=== PATIENT | male | born 1960 | race Caucasian/White ===

== ENCOUNTER → 2021-06-19 09:39 | Outpatient (CLI) | payer OTHER, SELFPAY ==
--- NOTE | ~2021-06-19 | US_ITS ---
EXAMINATION: US soft tissue head and neck EXAM DATE: 06/19/2021 10:04 INDICATION: R22.1 - Localized swelling, mass and lump, neck. TECHNIQUE: Multiple grayscale and Doppler images of the right neck palpable abnormality were obtained (by a technologist who performed the scan) and subsequently reviewed. There is no prior study for c omparison. FINDINGS: Scanning in right neck palpable abnormality demonstrates a focal echogenic region most likely patholo gically enlarged lymph node measuring 2.0 x 0.9 x 1.6 cm. Differential diagnosis includes reactive et iology from granulomatous process, lymphoma or metastatic disease. Consider neck CT with contrast. 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 Reviewed, dictated and finalized at location A. IMPRESSION: Right neck mass most likely pathologically enlarged lymph node; cli nical correlation, consider neck CT with contrast.
== END ==
PROVIDERS: PCP Physician Assistant; Visit Provider Otolaryngology
DX: R22.1 Localized swelling, mass and lump, neck (principal)
CPT/HCPCS: 76536

== ENCOUNTER 2021-06-28 10:25 | Outpatient (CLI) | payer OTHER, SELFPAY ==
--- NOTE | ~2021-06-28 | US_ITS ---
EXAMINATION: US FNA w image guidance DATE: 06/28/2021 11:23 INDICATION: Right neck mass. TECHNIQUE: The procedure and its benefits and risks were discussed with the patient. Risks specifically discusse d included bleeding. The patient verbalized understanding of the risks and agreed to proceed. The nec k was prepped and draped in the usual sterile manner. 1% lidocaine was used for local anesthesia. 5 passes were made with a 25G needle into the lesion under ultrasound guidance. There were no immedia te complications. The patient understood to call the ordering physician for results after a week and a half and verbalized that understanding. FINDINGS: Grayscale ultrasound images demonstrate needles advanced into a 10 x 14 x 10 mm hypoechoic mass in meraz perficial right parotid gland for biopsy. IMPRESSION: 1. Ultrasound-guided fine needle aspiration of a 14 mm mass in superficial right parotid gland. Reviewed, dictated and finalized at location A. O EDITOR IMPRESSION: 1. Ultrasound-guided fine needle aspiration of a 14 mm mass in superficial rig ht parotid gland.
== END 2021-06-28 10:26 | disposition home or self-care (01) ==
PROVIDERS: PCP Physician Assistant; Visit Provider Otolaryngology
DX: R22.1 Localized swelling, mass and lump, neck (principal)
CPT/HCPCS: 10005; 88173; 88305